=== PATIENT | female | born 1940 | race Caucasian/White ===

== ENCOUNTER → 2021-02-01 | Outpatient (CLI) | payer OTHER ==
[~2021-02-01] MED LIST: B-COMPLEX PLUS1 EACH; CHROMIUM400 MCG; CRANBERRY400 M1; FLAGYL500 MG PO; LEVAQUIN 500 M500 M2 PO; PROBIOTIC1 EAC1; UNICOMPLEX M TA1 TA1; VITAMIN B-6200 M1; VITAMIN C500 M1; VITAMIN D 5050000 I1
[2021-02-01 10:48] LABS: CREATININE 1.3 mg/dL (0.6-1.0)
== END ==
LOC: CAT 10:08
PROVIDERS: ATTEND Nurse Practitioner
DX: K57.30 Diverticulosis of large intestine without perforation or abscess without bleeding (principal); I70.0 Atherosclerosis of aorta; R31.0 Gross hematuria

== ENCOUNTER 2021-08-05 13:47 | Inpatient (IN) | payer OTHER ==
[2021-08-05] VITALS (24 sets, daily range): BP systolic 81–110; BP diastolic 33–64
[~2021-08-05] VITALS: Ht 167.6 cm; Wt 65.0 kg
--- NOTE | 2021-08-05 13:59 | NUR ---
PT TO ED VIA EMS FROM HOME FOR POSSIBLE UROSEPSIS. EMS REPORTS PT IS HYPOTENSIVE AND TACHYCARDIC EN ROUTE. UPON ARRIVAL, PT HAS IV IN PLACE BY EMS AND 250 ML NS INFUSED. PT PLACED ON CARDIAC DEFIB PADS, EDP AT BEDSIDE.
[2021-08-05 14:09] LABS: ABSOLUTE NEUTROPHILS 6.4 thou/uL (1.4-8.2); BASOPHILS 0.4 % (0.0-2.0); HEMATOCRIT 34.5 % (37.0-47.0); HEMOGLOBIN 11.6 gm/dL (12.0-15.0); LYMPHOCYTES 11.2 % (24.0-44.0); MCH 30.3 pg (26.0-34.0); MCHC 33.7 g/dL (28.0-37.0); MCV 89.7 fL (80.0-100.0); MONOCYTES 4.9 % (1.0-8.0); PLATELET COUNT 338 thou/uL (150-400); POLYS 83.5 % (36.0-66.0); RBC 3.84 mil/uL (4.20-5.00); RDW 13.9 % (10.5-14.5); WBC 7.6 thou/uL (4.0-11.0)
[2021-08-05 14:26] LABS: CALCIUM 8.4 mg/dL (8.5-10.1); CREATININE 1.7 mg/dL (0.6-1.0); POTASSIUM 4.5 mmol/L (3.5-5.1)
[2021-08-05 14:32] LABS: ALBUMIN 2.4 g/dL (3.4-5.0); TOTAL BILIRUBIN 0.5 mg/dL (0.2-1.0)
--- NOTE | 2021-08-05 14:51 | NUR ---
IV TEAM AT BEDSIDE TO INSERT CENTRAL LINE.
[2021-08-05 14:53] LABS: URINE BILIRUBIN NEGATIVE (Negative); URINE BLOOD 1+ (Negative); URINE CLARITY SL CLOUDY; URINE COLOR YELLOW; URINE GLUCOSE-RANDOM* NEGATIVE (Negative); URINE KETONES 1+ (Negative); URINE NITRITE-REFLEX NEGATIVE (Negative); URINE PROTEIN (DIPSTICK) 1+ (Negative); URINE UROBILINOGEN 0.2 E.U./dl (0.2-1.0)
[2021-08-05 14:56] LABS: URINE LEUKOCYTES-REFLEX 2+ (Negative)
[2021-08-05 15:09] LABS: SQUAMOUS >10 Many /LPF (0-3); URINE WBC-REFLEX 6-15 Few /HPF (0-5)
[2021-08-05 15:10] LABS: COARSE GRANULAR CASTS 0-3 Few /LPF (None Seen); URINE RBC 1-2 Rare /HPF (NONE SEEN)
[2021-08-05 15:11] LABS: CRYSTALS None Seen /LPF (None Seen)
--- NOTE | 2021-08-05 15:21 | NUR ---
A RIGHT IJ CENTRAL LINE WAS PLACED PER HOSPITAL POLICY AFTER A BEDSIDE TIMEOUT WAS COMPLETED. THE 25CM LINE WAS ADVANCED TO 6CM EXTERNAL. A STAT CHEST XRAY WAS ORDERED FOR CONFIRMATION
--- NOTE | 2021-08-05 16:34 | NUR ---
PT BECOMING HYPOTENSIVE, EDP NOTIFIED, VERBAL ORDER TO INITIATE LEVOPHED.
--- NOTE | 2021-08-05 16:42 | NUR ---
LEVOPHED STOPPED AT THIS TIME.
[2021-08-05] MEDS ORDERED: CEFDINIR300 MG PO (16:48)
[2021-08-05 16:55] LABS: BE(vivo) -8.4 mmol/L (-2 to +3); HCO3 14.4 mmol/L (22.0-26.0); pH 7.412 (7.360-7.450); sO2 92.3 % (92.0-98.0)
[2021-08-05 16:56] LABS: PCO2 23.2 mmHg (35.0-45.0)
[2021-08-06] VITALS (75 sets, daily range): BP systolic 76–158; BP diastolic 32–80
[2021-08-06 05:26] LABS: ABSOLUTE NEUTROPHILS 7.5 thou/uL (1.4-8.2); BASOPHILS 0.1 % (0.0-2.0); HEMATOCRIT 33.7 % (37.0-47.0); HEMOGLOBIN 11.4 gm/dL (12.0-15.0); LYMPHOCYTES 7.4 % (24.0-44.0); MCH 30.7 pg (26.0-34.0); MCV 90.3 fL (80.0-100.0); MONOCYTES 3.1 % (1.0-8.0); POLYS 89.4 % (36.0-66.0); RBC 3.73 mil/uL (4.20-5.00); RDW 13.9 % (10.5-14.5); WBC 8.4 thou/uL (4.0-11.0)
[2021-08-06 05:33] LABS: PLATELET COUNT 465 thou/uL (150-400)
[2021-08-06 05:41] LABS: ALBUMIN 2.3 g/dL (3.4-5.0); CREATININE 1.5 mg/dL (0.6-1.0); MAGNESIUM 2.3 mg/dL (1.8-2.4); POTASSIUM 3.8 mmol/L (3.5-5.1); TOTAL BILIRUBIN 0.4 mg/dL (0.2-1.0); TOTAL PROTEIN 5.9 g/dL (6.4-8.2)
--- NOTE | 2021-08-06 07:33 | EKG ---
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1940 Requested By: Wayne Au Order Number: [id number] : Geoffrey Bernabe Measurements Intervals [place] Rate: 185 P: OR: QRS: 32 QRSD: 72 T: 225 QT: 218 QTc: 383 Interpretive Statements Atrial fibrillation with rapid V-rate Repolarization abnormality, prob rate related No previous ECG available for comparison Electronically Signed On 08-06-2021 7:33:13 [employer] by Geoffrey Bernabe [email or web address] <ELECTRONICALLY SIGNED> By: Geoffrey Bernabe MD, [facility] 08/06/21 0733 1352 1352 Geoffrey Bernabe MD, FACC /EPI
--- NOTE | 2021-08-06 07:33 | EKG ---
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 : 1940 Requested By: Wayne Au Order Number: [id number] MD: Geoffrey Bernabe Measurements Intervals [place] Rate: 107 P: ID: QRS: 21 QRSD: 73 T: 2 QT: 329 QTc: 439 Interpretive Statements Atrial fibrillation Anteroseptal infarct, age indeterminate Compared to ECG 08/05/2021 13:52:29 Myocardial infarct finding now present Early repolarization no longer present Electronically Signed On 08-06-2021 7:33:23 [employer] by Geoffrey Bernabe [email or web address] <ELECTRONICALLY SIGNED> By: Geoffrey Bernabe MD, [facility] 08/06/21 0733 1423 142 Geoffrey Bernabe MD, FACC /EPI
--- NOTE | 2021-08-06 09:53 | 2DMMODE ---
[facility] [place] [address] 2 D/M-MODE ECHOCARDIOGRAM Name: CHERYL BLACK Room #: 247-P ADM IN M.R.#: [id number] Admission: 08/05/21 Attend Phys: Darrin Pascual MD Discharge: Date of : 44 Report #: [id number] THIS REPORT FOR: cc: Charlie Mann MD, Neal A. MD Santiago, Patrick MD [facility] ~ APPROVED REPORT Study performed: 08/06/2021 09:08:24 EXAM: Limited 2D, Doppler, and color-flow Echocardiogram Patient Location: ICU Room #: [facility] Status: routine BSA: 1.72 HR: 104 bpm BP: 94/52 mmHg Rhythm: Atrial Fibrillation Other Information Study Quality: Adequate Indications Afib, COVID + 2D Dimensions IVSd: 10.68 (7-11mm) LVDd: 39.09 mm PWd: 10.52 (7-11mm) Ascending Ao: 36.02 (22-36mm) LVDs: 27.02 (25-40mm) Left Atrium: 32.23 (27-40mm) Aortic Root: 33.72 mm Aortic Valve AoV Peak Mehrdad.: 0.99 m/s AO Peak Gr.: 3.95 mmHg Pulmonary Valve PV Peak Mehrdad.: 0.82 m/s PV Peak Gr.: 2.68 mmHg Tricuspid Valve TR Peak Mehrdad.: 2.62 m/s RAP Estimate: 10.00 mmHg TR Peak Gr.: 27.45 mmHg PA Pressure: 37.00 mmHg [facility] [employer] [address] [address] 2 D/M-MODE ECHOCARDIOGRAM Name: CHERYL BLACK Room #: 247-P ADM IN M.R.#: [id number] Admission: 08/05/21 Attend Phys: Darrin Pascual MD Discharge: Date of : 44 Report #: [id number] Left Ventricle The left ventricle is normal size. There is normal LV segmental wall motion. There is normal left ventricular wall thickness. Left ventricular systolic function is normal. LVEF is 60-65%. This study is not technically sufficient to allow evaluation of the LV diastolic function due to atrial fibrillation. Right Ventricle The right ventricle is normal size. The right ventricular systolic function is normal. Atria The left atrium size is normal. The right atrium size is normal. Aortic Valve The aortic valve is normal in structure. Trace aortic regurgitation. There is no aortic valvular stenosis. Mitral Valve The mitral valve is normal in structure. Mild mitral annular calcification. Mild mitral regurgitation. Tricuspid Valve The tricuspid valve is normal in structure. Mild tricuspid regurgitation. Estimated PAP is 37mmHg. Pulmonic Valve Pulmonic valve is not well visualized. Great Vessels The aortic root is normal in size. The ascending aorta is normal in size. IVC is dilated and partially collapses with inspiration. Pericardium Small anterior pericardial effusion. <Conclusion> Normal left ventricular size/wall thickness Ejection fraction 60-65% Normal right ventricle size/function Normal atrial size Normal aortic valvular structure and function Mild mitral annular calcification Mild mitral valve insufficiency [facility] [address] [place] [address] 2 D/M-MODE ECHOCARDIOGRAM Name: CHERYL BLACK Room #: 247-P [facility] IN .R.#: [id number] Admission: 08/05/21 Attend Phys: Darrin Pascual MD Discharge: Date of : 44 Report #: [id number] Mild tricuspid valve insufficiency Minimal anterior wall pericardial effusion Normal aortic root size <ELECTRONICALLY SIGNED> By: Geoffrey Bernabe MD, FACC 08/06/2152 1 Geoffrey Bernabe MD, FACC /INF
[2021-08-06 10:05] LABS: BE(vivo) -8.8 mmol/L (-2 to +3); HCO3 13.9 mmol/L (22.0-26.0); PO2 70.6 mmHg (80.0-100.0); pH 7.413 (7.360-7.450); sO2 94.8 % (92.0-98.0)
[2021-08-06 10:06] LABS: PCO2 22.2 mmHg (35.0-45.0)
--- NOTE | 2021-08-06 16:40 | NUR ---
Chart reviewed and case discussed with the care team. Pt is currently in ICU on high flow o2, Covid+, afib/rvr, UTI and septic shock. The pt was admitted from home via EMS after feeling ill for several days and having been in bed. Pt is in enhanced ISO at this time. Pt's spouse is at home and having flu like sypmtoms as well. He is her emergency contact with both cell and home numbers listed if needed. The pt has a rwalker at home and has an indewelling trevizo. She has hx of bladder, cervical and renal cell cancer s/p surgery. Her pcp is Dr. Mann [facility]. Pulm/ID/Urology have been consulted. Pt is unvaccinated and refused remdesivir. Will ask for therapy evals as appropriate as pt may benefit from some level of rehab or hh at hi.
--- NOTE | 2021-08-06 18:24 | NUR ---
PT IS IN A-FIB RVR WITH CARDIZEM DRIP AND NEOSYNEPHRINE. THIS RN REPORTS TO PERSONNEL REPRESENTATIVE CARDIOLOGY THAT THE CARDIZEM DRIP IS CAUSING HYPOTENSION BUT NOT CONTROLLING THE HR. CARDIOLOGY REPORTS TO THIS RN "TURN THE CARDIZEM DRIP OFF IF SYS BP IS BELOW 100 AND MAX OUT THE NEOSYNEPHRINE FOR RATE CONTROL." I NOTIFIED CARDIOLOGY THIS PT HR RANGES FROM 100-170 WITH NO RATE CONTROL.
--- NOTE | 2021-08-06 23:15 | NUR ---
Spoke with Dr. Tyler earlier in shift to notify of continued afib rvr rate up to 160s. Orders recieved, able to titrate VERA down as night progressed and around 2300 pt converted back to SR rate in the 70s. Cardizem gtt was at 15mg/hr. Other vitals stable, continues to be on 12L high flow NC.
[2021-08-07] VITALS (38 sets, daily range): BP systolic 101–145; BP diastolic 37–58
[2021-08-07 05:34] LABS: HEMATOCRIT 29.4 % (37.0-47.0); HEMOGLOBIN 10.1 gm/dL (12.0-15.0); MCHC 34.4 g/dL (28.0-37.0); MCV 90.2 fL (80.0-100.0); RBC 3.26 mil/uL (4.20-5.00); RDW 13.9 % (10.5-14.5); WBC 15.4 thou/uL (4.0-11.0)
[2021-08-07 05:41] LABS: CALCIUM 8.3 mg/dL (8.5-10.1); CREATININE 1.5 mg/dL (0.6-1.0)
--- NOTE | 2021-08-07 08:53 | NUR ---
PT WAS UP ON THE TOLIET HAVING A BM TURNED [place], AND WENT UNRESPONSIVE. CODE BLUE CALLED. PT NEVER LOSSED A PULSE. PT BEGAN TO COME AROUND WAS TALKING AND ABLE TO FOLLOW COMMANDS. PT WAS ABLE TO WALK BACK TO THE BED.
[2021-08-08 04:03] VITALS: BP 123/57
[2021-08-08 04:58] LABS: CALCIUM 8.6 mg/dL (8.5-10.1); CREATININE 1.5 mg/dL (0.6-1.0); POTASSIUM 4.2 mmol/L (3.5-5.1)
--- NOTE | 2021-08-08 06:43 | NUR ---
PATIENT IS ALERT AND OREINTED X4. SHE IS ONENHANCED PRECAUTIONS.SHE IS ON 8L ON HIFLOW NASAL CANULA. PATIENT IS CC/ TELE AND AND BEEN RUNNING SINUS RHYTHM. PATIENT HAS A CHACON CATHETER IN PLACE THAT IS PATENT. TALISHA HAS A IGHT TRIPLE LUMBEN IJ IN PLACE THAT IS PATENT WITH GOOD BLOOD RETURN AND SALINE LOCKED. PATIENT WILL PATY CONINUE TO BE MONITORED.
[2021-08-08 07:52] VITALS: BP 117/64
[2021-08-08 09:07] LABS: HIV ANTIBODY Non Reactive (Non Reactive)
[2021-08-08 11:45] VITALS: BP 108/54
[2021-08-08 16:13] VITALS: BP 118/58
[2021-08-08 20:20] VITALS: BP 105/53
[2021-08-09 00:16] VITALS: BP 133/65
[2021-08-09 03:45] VITALS: BP 133/53
[2021-08-09 04:57] LABS: ALBUMIN 2.1 g/dL (3.4-5.0); CALCIUM 8.1 mg/dL (8.5-10.1); CREATININE 1.4 mg/dL (0.6-1.0); MAGNESIUM 2.5 mg/dL (1.8-2.4); POTASSIUM 4.2 mmol/L (3.5-5.1); TOTAL BILIRUBIN 0.3 mg/dL (0.2-1.0); TOTAL PROTEIN 5.1 g/dL (6.4-8.2)
[2021-08-09 05:06] LABS: ABSOLUTE NEUTROPHILS 15.1 thou/uL (1.4-8.2); BASOPHILS 0.1 % (0.0-2.0); HEMATOCRIT 27.8 % (37.0-47.0); HEMOGLOBIN 9.6 gm/dL (12.0-15.0); LYMPHOCYTES 3.8 % (24.0-44.0); MCH 31.1 pg (26.0-34.0); MCHC 34.5 g/dL (28.0-37.0); MCV 89.9 fL (80.0-100.0); MONOCYTES 3.7 % (1.0-8.0); PLATELET COUNT 427 thou/uL (150-400); POLYS 92.4 % (36.0-66.0); RBC 3.09 mil/uL (4.20-5.00); RDW 14.1 % (10.5-14.5); WBC 16.3 thou/uL (4.0-11.0)
--- NOTE | 2021-08-09 06:37 | NUR ---
Patient is alert and oriented x4. Patient is on enhanced precautions. Patient is on 2L of oxygen. Patient is cc/ tele and has been running sinus rhythm this shift. Patient has a trevizo in placed that is patent. Patient has a right IJ thats lines are patent with good blood return. Patient will continue to be monitored.
[2021-08-09 07:39] VITALS: BP 119/55
[2021-08-09 11:49] VITALS: BP 115/58
[2021-08-09 16:02] VITALS: BP 108/53
--- NOTE | 2021-08-09 16:24 | NUR ---
SW reviewed chart and spoke with nursing and attending physician. Pt was transferred to from ICU. Pt is in Enhanced Isolation due to COVID. Pt is afebrile and on 6L of O2. Pt is on IV abx and IV steroids. PT/OT evals ordered today. [facility] is following for possible admission to in acute rehab. SW placed call to pt's room. No answer. Per chart, pt is alert/orientated x 4. SW will follow up with pt at a later time to obtain info for assessment and discuss discharge plan.
[2021-08-09 19:27] VITALS: BP 135/59
[2021-08-10 03:23] VITALS: BP 130/60
--- NOTE | 2021-08-10 06:39 | NUR ---
Patient making progress towards outcome goals. Oxygeation optimal with 6L/NC. Vital signs snd rythm stable. Denies pain. High fall risks, fall precautios in place. cALLS OUT APPROPRIATELY FOR NEEDS.
[2021-08-10 12:22] VITALS: BP 101/50
[2021-08-10 17:22] VITALS: BP 113/51
[2021-08-10 19:01] VITALS: BP 102/58
[2021-08-11 04:52] LABS: HEMATOCRIT 29.3 % (37.0-47.0); HEMOGLOBIN 10.1 gm/dL (12.0-15.0); MCH 30.8 pg (26.0-34.0); MCHC 34.4 g/dL (28.0-37.0); MCV 89.5 fL (80.0-100.0); PLATELET COUNT 451 thou/uL (150-400); RBC 3.27 mil/uL (4.20-5.00); RDW 13.5 % (10.5-14.5); WBC 21.8 thou/uL (4.0-11.0)
[2021-08-11 05:06] LABS: ALBUMIN 2.4 g/dL (3.4-5.0); CALCIUM 8.5 mg/dL (8.5-10.1); CREATININE 1.5 mg/dL (0.6-1.0); PHOSPHORUS 3.8 mg/dL (2.6-4.7); POTASSIUM 4.1 mmol/L (3.5-5.1)
--- NOTE | 2021-08-11 06:30 | NUR ---
Patient is alert and oriented x4. Patient is on enhanced precautions. Patient is on 4L of oxygen. Patient is CC/ Tele and as run sinus rhythm this shift. Patient has a trevizo catheter in place that is patent. Urine is yellow in color. Patiet has a right triple lulmen IJ. All three lumens are patent with good blood return. When flushing lumens this RN makes note that they are hard flushes. Patient will continue to be monitored.
[2021-08-11 07:25] VITALS: BP 115/56
[2021-08-11] MEDS ORDERED: CARDIZEM CD120 MG PO (10:29)
[2021-08-11] MEDS ORDERED: ELIQUIS2.5 MG PO (10:29)
[2021-08-11] MEDS ORDERED: MUCINEX600 MG PO (10:30)
[2021-08-11 11:16] VITALS: BP 108/54
[2021-08-11 11:23] LABS: ABSOLUTE NEUTROPHILS 19.8 thou/uL (1.4-8.2); METAMYELOCYTES 1 %
[2021-08-11 11:24] LABS: ANISOCYTOSIS 1+; OVALOCYTES FEW
--- NOTE | 2021-08-11 11:48 | NUR ---
DISCHARGE NOTE: NISHA reviewed chart and spoke with nursing and attending physician. Pt remains in Enhanced Isolation due to COVID. Pt is afebrile and on 4L of O2. Pt is on IV lasix and IV steroids. SW discussed case with [facility] rehab technician and CHIEF CREW SCHEDULER. [facility] is able to accept pt to rehab today. Pt will remain on 3W until out of Enhanced Isolation. Discharge orders completed. NISHA spoke with pt via phone to discuss rehab. Pt is aware and agreeable with plan. SW informed pt that she will remain on 3W for the time being and rehab team conferences occur on afternoons. Pt verbalized understanding. Pt lives at home with her spouse. Prior to admission, pt was independent with ADLs. No use of DME at home. 2 steps to enter the home. No steps inside. Pt's PCP is Dr. Mann. No hx of services and post-acute placement. Rehab CM to follow and assist as needed with discharge planning.
--- NOTE | 2021-08-11 15:10 | NUR ---
DISCHARGE NOTE: PT DC TO [facility] REHAB STATUS, BUT DUE TO COVID, WILL STAY IN ISOLATION ROOM ON 3W. WILL CONTINUE TO MONITOR.
[2021-08-11 15:25] VITALS: BP 110/57
[2021-08-12 08:55] LABS: T-SPOT.TB Negative
== END 2021-08-11 15:26 | disposition home or self-care (01) | DRG 871 ==
LOC: ER 13:47 → 3W 15:41 → EROBS 15:41 → ICU 15:41 → 3W 08-07 19:05
PROVIDERS: Emergency Medicine; Hospitalist; Internal Medicine; Internal Medicine Pulmonary Disease; Specialist; ADMIT Internal Medicine; ATTEND Internal Medicine
PROC: 5A0955A Assistance with Respiratory Ventilation, Greater than 96 Consecutive Hours, High Flow/Velocity Cannula (ICD-10-PCS; principal; 2021-08-05)
PROC: 02HV33Z Insertion of Infusion Device into Superior Vena Cava, Percutaneous Approach (ICD-10-PCS; 2021-08-05)
DX: A41.89 Other specified sepsis (principal); J96.01 Acute respiratory failure with hypoxia; U07.1 COVID-19; R65.21 Severe sepsis with septic shock; J12.82 Pneumonia due to coronavirus disease 2019; E43 Unspecified severe protein-calorie malnutrition; G92.8 Other toxic encephalopathy; J96.02 Acute respiratory failure with hypercapnia; R57.0 Cardiogenic shock; N39.0 Urinary tract infection, site not specified; N17.9 Acute kidney failure, unspecified; N82.1 Other female urinary-genital tract fistulae; Z68.23 Body mass index [BMI] 23.0-23.9, adult; Z85.528 Personal history of other malignant neoplasm of kidney; Z85.41 Personal history of malignant neoplasm of cervix uteri; Z85.42 Personal history of malignant neoplasm of other parts of uterus; I48.91 Unspecified atrial fibrillation; Z79.01 Long term (current) use of anticoagulants; Z90.5 Acquired absence of kidney; Z88.2 Allergy status to sulfonamides; Z85.51 Personal history of malignant neoplasm of bladder; I48.0 Paroxysmal atrial fibrillation; I12.9 Hypertensive chronic kidney disease with stage 1 through stage 4 chronic kidney disease, or unspecified chronic kidney disease; N18.9 Chronic kidney disease, unspecified; Z90.49 Acquired absence of other specified parts of digestive tract; Z90.710 Acquired absence of both cervix and uterus
CPT/HCPCS: 10078; 10779; 10879

== ENCOUNTER 2021-08-11 11:35 | Inpatient (IN) | payer OTHER ==
[~2021-08-11] VITALS: Ht 167.6 cm; Wt 60.5 kg
[~2021-08-11 11:35] MED LIST changes: +CARDIZEM CD120 MG PO; +CEFDINIR300 MG PO; +ELIQUIS2.5 MG PO; +MUCINEX600 MG PO
[2021-08-11 15:49] VITALS: BP 113/58
[2021-08-11 19:51] VITALS: BP 117/58
[2021-08-12 05:20] LABS: HEMATOCRIT 28.6 % (37.0-47.0); HEMOGLOBIN 9.8 gm/dL (12.0-15.0); MCH 30.6 pg (26.0-34.0); MCHC 34.2 g/dL (28.0-37.0); MCV 89.5 fL (80.0-100.0); RBC 3.2 mil/uL (4.20-5.00)
[2021-08-12 05:22] LABS: ALBUMIN 2.4 g/dL (3.4-5.0); CALCIUM 8.1 mg/dL (8.5-10.1); CREATININE 1.4 mg/dL (0.6-1.0); PHOSPHORUS 4.3 mg/dL (2.5-4.9); POTASSIUM 3.7 mmol/L (3.5-5.1)
[2021-08-12 05:55] LABS: FOLIC ACID 18.7 ng/mL (8.6-58.9)
[2021-08-12 07:09] VITALS: BP 126/70
[2021-08-12 13:11] VITALS: BP 126/70
[2021-08-12 19:51] VITALS: BP 99/46
[2021-08-13 06:10] LABS: HEMATOCRIT 29.1 % (37.0-47.0); HEMOGLOBIN 9.5 gm/dL (12.0-15.0); MCH 29.5 pg (26.0-34.0); MCHC 32.8 g/dL (28.0-37.0); PLATELET COUNT 401 thou/uL (150-400); RBC 3.23 mil/uL (4.20-5.00); RDW 13.9 % (10.5-14.5); WBC 11.7 thou/uL (4.0-11.0)
[2021-08-13 06:17] LABS: ALBUMIN 2.3 g/dL (3.4-5.0); CALCIUM 8.5 mg/dL (8.5-10.1); CREATININE 1.4 mg/dL (0.6-1.0); PHOSPHORUS 3.6 mg/dL (2.6-4.7); POTASSIUM 3.9 mmol/L (3.5-5.1)
[2021-08-13 07:52] VITALS: BP 98/54
[2021-08-13 09:21] LABS: ABSOLUTE NEUTROPHILS 9.1 thou/uL (1.4-8.2); METAMYELOCYTES 1 %
[2021-08-13 15:34] VITALS: BP 107/47
[2021-08-13 20:35] VITALS: BP 115/59
[2021-08-14 08:18] VITALS: BP 114/57
[2021-08-14 19:28] VITALS: BP 114/53
[2021-08-15 07:50] VITALS: BP 98/51
[2021-08-15 19:48] VITALS: BP 109/52
[2021-08-16 08:04] VITALS: BP 108/55
[2021-08-16 09:00] VITALS: BP 108/55
[2021-08-16 20:20] VITALS: BP 97/45
== END 2021-08-17 | disposition home health service (06) | DRG 177 ==
LOC: 3W 15:27
PROVIDERS: Hospitalist; Nurse Practitioner Family; Specialist; ADMIT Physical Medicine & Rehabilitation; ATTEND Physical Medicine & Rehabilitation
DX: U07.1 COVID-19 (principal); J12.82 Pneumonia due to coronavirus disease 2019; J96.01 Acute respiratory failure with hypoxia; A41.9 Sepsis, unspecified organism; R65.20 Severe sepsis without septic shock; E43 Unspecified severe protein-calorie malnutrition; T83.511A Infection and inflammatory reaction due to indwelling urethral catheter, initial encounter; N39.0 Urinary tract infection, site not specified; N17.9 Acute kidney failure, unspecified; N82.0 Vesicovaginal fistula; D84.9 Immunodeficiency, unspecified; D63.8 Anemia in other chronic diseases classified elsewhere; N76.0 Acute vaginitis; I48.91 Unspecified atrial fibrillation; R54 Age-related physical debility; B96.5 Pseudomonas (aeruginosa) (mallei) (pseudomallei) as the cause of diseases classified elsewhere; R26.9 Unspecified abnormalities of gait and mobility; Z74.09 Other reduced mobility; N18.9 Chronic kidney disease, unspecified; Z85.528 Personal history of other malignant neoplasm of kidney; Z90.5 Acquired absence of kidney; Z85.41 Personal history of malignant neoplasm of cervix uteri; Z85.42 Personal history of malignant neoplasm of other parts of uterus; Z90.710 Acquired absence of both cervix and uterus; Z87.891 Personal history of nicotine dependence; Z88.2 Allergy status to sulfonamides; Z68.21 Body mass index [BMI] 21.0-21.9, adult
CPT/HCPCS: 10112; 10779